=== PATIENT | female | born 1990 | race African-American/Black ===

== ENCOUNTER 2020-03-16 00:07 | Emergency (ER) | payer OTHER ==
[~2020-03-16] VITALS: Ht 170.2 cm; Wt 114.0 kg
[2020-03-16 00:12] VITALS: BP 153/95
[2020-03-16] MEDS ORDERED: FAMOTIDINE 20MG TABLET PO STA (00:34)
[2020-03-16] MEDS ORDERED: METHYLPREDNISOLONE SOD SUCC 125 MG/2 ML VIAL IM ONE (00:45)
== END 2020-03-16 01:48 | disposition home or self-care (01) ==
LOC: ER 00:07
DX: L50.9 Urticaria, unspecified (principal)
CPT/HCPCS: 96372; 99283; J2930